=== PATIENT | male | born 1960 | race African-American/Black ===

== ENCOUNTER 2017-12-06 11:19 | Emergency (ER) | payer MEDICAID ==
[~2017-12-06] VITALS: Ht 175.3 cm; Wt 75.0 kg
[2017-12-06 14:07] LABS: BASOPHILS % 0.5 % (0.0-2.0); EOSINOPHILS % 0.1 % (0.0-5.0); HEMATOCRIT. 48.2 % (42.0-52.0); HEMOGLOBIN. 15.8 g/dL (14.0-18.0); LYMPHOCYTES % 9.5 % (20.0-50.0); MEAN CORPUSCULAR HEMOGLOBIN 26.6 pg (28.0-32.0); MEAN CORPUSCULAR VOLUME 81.1 fL (80.0-94.0); MEAN PLATELET VOLUME 8.6 fl (7.4-10.4); MONOCYTES % 8.5 % (2.0-8.0); NEUTROPHILS % 81.4 % (40.0-76.0); PLATELET 256 x1000/uL (130-400); RED BLOOD CELL COUNT 5.94 mill/uL (4.7-6.1); RED CELL DISTRIBUTION WIDTH 15.2 % (11.6-14.6)
[2017-12-06 14:55] LABS: CHLORIDE 103 mEq/L (98-107)
[2017-12-06 14:58] LABS: ETHANOL BLOOD < 10 mg/dL
[2017-12-06] MEDS ORDERED: IPRATROPIUM BROMIDE (0.02%) 0.5MG/2.5ML NEB HHN STA (16:38)
[2017-12-06] MEDS ORDERED: ALBUTEROL (0.083%) 2.5MG/3ML NEB HHN STA (16:38)
[2017-12-06 16:59] LABS: *AMPHETAMINES SCREEN URINE PRESUMTIVE POSITIVE (NEGATIVE); *BARBITURATES SCREEN URINE NEGATIVE (NEGATIVE); CANNABINOID URINE SCREEN PRESUMTIVE POSITIVE (NEGATIVE); METHADONE URINE SCREEN NEGATIVE (NEGATIVE); OPIATES URINE SCREEN NEGATIVE (NEGATIVE); PHENCYCLIDINE URINE SCREEN NEGATIVE (NEGATIVE)
[2017-12-06 17:00] LABS: *BENZODIAZEPINES SCREEN URINE NEGATIVE (NEGATIVE); *COCAINE SCREEN URINE NEGATIVE (NEGATIVE)
[2017-12-06] MEDS ORDERED: ARIPIPRAZOLE 10MG TABLET PO ONE (17:45)
[2017-12-06] MEDS ORDERED: MECLIZINE 25MG TABLET PO ONE (18:15)
[2017-12-07 14:48] VITALS: BP 149/96
== END 2017-12-07 15:30 | disposition home or self-care (01) ==
LOC: ER 11:25
DX: F19.10 Other psychoactive substance abuse, uncomplicated (principal); F20.0 Paranoid schizophrenia; R00.0 Tachycardia, unspecified; I10 Essential (primary) hypertension; H81.399 Other peripheral vertigo, unspecified ear; J44.9 Chronic obstructive pulmonary disease, unspecified; I44.7 Left bundle-branch block, unspecified; Z59.0 Homelessness
CPT/HCPCS: 36415; 71045; 80048; 80305; 80307; 80329; 85025; 93005; 94640; 99285; G0482; J7611; J8597